=== PATIENT | male | born 1995 | race Caucasian/White ===

== ENCOUNTER 2021-04-16 20:29 | Emergency (ER) | payer OTHER ==
[~2021-04-16] VITALS: Ht 182.9 cm; Wt 70.3 kg
[2021-04-16 20:29] VITALS: BP 133/67
--- NOTE | 2021-04-16 20:29 | NUR ---
PATIENT AMBULATED TO BED 8.
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
[2021-04-16] MEDS ORDERED: MORPHINE SULFATE 4 MG/ML SYR ONE (20:48)
[2021-04-16] MEDS ORDERED: MORPHINE SULFATE 4 MG/ML SYR IVP ONE (20:55)
--- NOTE | 2021-04-16 21:00 | NUR ---
PATIENT TRANSPORTED TO [facility] VIA [facility].
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
== END 2021-04-16 21:00 | disposition short-term general hospital (02) ==
LOC: MED 20:29
DX: S21.112A Laceration without foreign body of left front wall of thorax without penetration into thoracic cavity, initial encounter (principal); S31.119A Laceration without foreign body of abdominal wall, unspecified quadrant without penetration into peritoneal cavity, initial encounter; S61.512A Laceration without foreign body of left wrist, initial encounter; S31.010A Laceration without foreign body of lower back and pelvis without penetration into retroperitoneum, initial encounter; R00.0 Tachycardia, unspecified; S41.032A Puncture wound without foreign body of left shoulder, initial encounter; R61 Generalized hyperhidrosis; W45.8XXA Other foreign body or object entering through skin, initial encounter; Y93.89 Activity, other specified; Y92.89 Other specified places as the place of occurrence of the external cause; Y99.8 Other external cause status
CPT/HCPCS: 71045; 96374; 99291; J2270; Q0092